=== PATIENT | female | born 1990 | race Caucasian/White ===

== ENCOUNTER 2016-06-15 16:09 | Inpatient (IN) | payer MEDICAID ==
[~2016-06-15] VITALS: Ht 160 cm; Wt 78.0 kg
[~2016-06-15 16:09] MED LIST: ACET500C5 PO
[2016-06-15] MEDS ORDERED: LACTATED RINGER'S 1,000 ML IV SCH (17:01)
[2016-06-15 17:08] VITALS: BMI 30.5
[2016-06-15] MEDS ORDERED: BETAMET NA PHOS/AC(6 MG/ML) 5ML INJ IM ONE (17:30)
[2016-06-15] MEDS ORDERED: AMPICILLIN 2 GM/NS (PMX) 100 ML IV ONE (17:30)
[2016-06-15] MEDS ORDERED: METHYLERGONOVINE 0.2 MG INJ IM PRN (17:30)
[2016-06-15] MEDS ORDERED: MAGNESIUM SULFATE 4 GM/100 ML 100 ML IVPB ONE (17:30)
[2016-06-15] MEDS ORDERED: OXYTOCIN 30 UNITS/LR 500 ML IV PRN (17:30)
[2016-06-15] MEDS ORDERED: CARBOPROST 250 MCG INJ IM PRN (17:30)
[2016-06-15] MEDS ORDERED: MISOPROSTOL 200 MCG TAB PR PRN (17:30)
[2016-06-15] MEDS: LACTATED RINGER'S 1,000 ML IV PRN (17:33)
[2016-06-15 17:58] LABS: BASOPHIL # 0.1 10^3/ul (0.0-0.1); BASOPHILS % 0.8 % (0.0-2.0); EOSINOPHILS % 0.3 % (0.0-7.0); HEMATOCRIT 36.6 % (37.0-47.0); HEMOGLOBIN 12.6 g/dl (12.0-16.0); LYMPHOCYTES % 18.7 % (15.0-51.0); MEAN CORPUSCULAR HEMOGLOBIN 34.5 pg (29.0-33.0); MEAN CORPUSCULAR HGB CONC 34.5 g/dl (32.0-37.0); MEAN CORPUSCULAR VOLUME 100.1 fl (82.0-101.0); MEAN PLATELET VOLUME 10.7 fl (7.4-10.4); MONOCYTE # 0.6 10^3/ul (0.3-0.9); MONOCYTES % 5.5 % (0.0-11.0); NEUTROPHIL # 8.1 10^3/ul (1.6-7.5); NEUTROPHILS % 74.7 % (39.0-77.0); PLATELET COUNT 177 10^3/UL (140-440); RED BLOOD COUNT 3.66 10^6/ul (4.20-5.40); RED CELL DISTRIBUTION WIDTH 11.7 % (11.5-14.5); UNCORRECTED WBC 10.9 10^3/ul (4.8-10.8); WHITE BLOOD COUNT 10.9 10^3/ul (4.8-10.8)
[2016-06-15 18:02] LABS: CONDITION 1
[2016-06-15 18:11] LABS: INR 0.92; PROTIME 12.4 Sec (12.2-14.2)
[2016-06-15 18:12] LABS: PARTIAL THROMBOPLASTIN TIME 25.6 Sec (25.0-35.0)
[2016-06-15] MEDS: MAGNESIUM SULFATE 20 GM/500 ML 500 ML IV SCH (18:37)
--- NOTE | 2016-06-15 18:45 | RADRPT ---
PROCEDURE: US OB CLINICAL INDICATION: 36 WEEKS IN ACTIVE LABOR TECHNIQUE: Multiple sonographic images of the pelvis were obtained. The images were reviewed on a PACS workstation. COMPARISON: Obstetrical ultrasound from the same date FINDINGS: The cervix is not well visualized. There is a single viable intrauterine gestation. Cardiac activity is present with 94 beats per minute. There is a vertex presentation. The placenta is fundal. There is no evidence for an abruption or placenta previa. There is a subjectively normal amount of amniotic fluid. Measurements were made in order to determine age. The results are as follows (cm): BPD =8.15 HC =28.60 AC =29.86 FL =6.00 Estimated gestational age by ultrasound of approximately 32 weeks, 2 days. The estimated date of delivery by ultrasound is 08/08/2016. Reported gestational age by LMP of approximately 33 weeks, 6 days. The reported date of delivery by LMP is 07/28/2016. EFW = 2040 grams (15th percentile by ultrasound) IMPRESSION: Single viable intrauterine gestation of approximately 32 weeks, 2 days . The estimated date of delivery is 08/08/2016 . Dating by ultrasound is within 11 days of dating by LMP. The cervix is not well visualized. Cephalic presentation. Estimated weight is in the 15th percentile. RPTAT: EE Physician Anitha Date Time Electronically viewed and signed by Physician Anitha on 06/15/2016 18:45 RA/
[2016-06-15] MEDS: AMPICILLIN 1 GM/NS (PMX) 50 ML IV SCH (20:53)
[2016-06-15] MEDS ORDERED: AMPICILLIN 1 GM/NS (PMX) 50 ML IVPB SCH (21:00)
[2016-06-15] MEDS ORDERED: AMPICILLIN 1 GM/NS (PMX) 50 ML IV SCH (21:30)
[2016-06-16] MEDS: AMPICILLIN 1 GM/NS (PMX) 50 ML IV SCH ×5 (00:49→16:55)
[2016-06-16] MEDS: LACTATED RINGER'S 1,000 ML IV PRN ×2 (03:53→18:38)
[2016-06-16] MEDS: MAGNESIUM SULFATE 20 GM/500 ML 500 ML IV SCH ×2 (04:31→14:38)
[2016-06-16] MEDS ORDERED: BETAMET NA PHOS/AC(6 MG/ML) 5ML INJ IM ONE (17:30)
[2016-06-16] MEDS ORDERED: AMPICILLIN 2 GM/NS (PMX) 100 ML IVPB SCH (17:30)
--- NOTE | 2016-06-16 17:41 | RADRPT ---
PROCEDURE: US biophysical profile. CLINICAL INDICATION: labor at 34 weeks. TECHNIQUE: Multiple sonographic images of the uterus were obtained. The images were revi ewed on a PACS workstation. COMPARISON: No prior studies are available for comparison. FINDINGS: There is a single live intrauterine gestation. heart rate is 137 beats per minute. The position is cephalic. The placenta is anterior grade II with no abruption or previa. The JANY is 14.8 cm. (Normal = 5-20 cm.) Breathing Movement: 2 Gross Body Movement: 2 Tone: 2 Qualitative Amniotic Fluid Volume: 2 TOTAL: 8 IMPRESSION: 1. The biophysical score is 8/8. RPTAT: QQ .Alin Rodriguez MD, MD Date Time Electronically viewed and signed by .Alin Rodriguez MD, on 06/16/2016 17:41 .R/
[2016-06-16] MEDS: AMPICILLIN 1 GM/NS (PMX) 50 ML IVPB SCH (21:16)
--- NOTE | 2016-06-16 21:57 | CONS ---
DATE OF ADMISSION: 06/15/2016 DATE OF CONSULTATION: 06/16/2016 REQUESTING PHYSICIAN: Bhaskar Jean MD REASON FOR CONSULTATION: labor with advancing dilatation. HISTORY OF PRESENT ILLNESS: Mrs. Bain is a 25-year-old, 1 admitted on 6 at 33-6/7 weeks' with labor. She has also chronic hypertension, does not appear to have p regnancy-induced hypertension. She is on magnesium and ampicillin for labor, received the f irst dose of betamethasone last night, and will have another dose probably around this time. There is no fever and no rupture of membranes. Group B strep is unknown. Blood type is A positive, RPR n egative, rubella immune, hepatitis B surface antigen negative. So, she is today 34 weeks. The estimated weight is 2040 g. I was asked to discuss the expect ed NICU problems with her. I spoke with the help of the automatic folder seamer computer. I explained issues of prematurity, possible risks related to prematurity such as long-term neurodevelopmental problems as well as the acute problems during her hospitalization such as respiratory, feeding, NEC, infection, and many other. The mother appears to understand the automatic folder seamer very well, and mother asked good questions, which we re all answered. Issues such as umbilical and central venous access were discussed, risk for intracranial bleeding, N EC, infection, apnea, hyperbilirubinemia, feeding difficulties touched. Thank you for allowing me to participate in the care of this family. Dictated By: VICENTE LOBATO MD AV/NTS Conf#: [id number] DID#: [id number] CC: BHASKAR JEAN MD;*EndCC*
[2016-06-17] MEDS: MAGNESIUM SULFATE 20 GM/500 ML 500 ML IV SCH (00:13)
[2016-06-17] MEDS: AMPICILLIN 1 GM/NS (PMX) 50 ML IVPB SCH ×6 (00:52→21:02)
[2016-06-17] MEDS: LACTATED RINGER'S 1,000 ML IV PRN ×2 (09:24→18:08)
--- NOTE | 2016-06-17 12:53 | PN ---
Date/Time of Note Date/Time of Note DATE: 06/17/16 TIME: 12:51 OB Subjective Subjective Subjective 34+wks GA with labor S/p Mg and steroids +fm No VB No CTXs No LOf --->BPP daily --->CBC --->continious monitoring and close Observation RENATO VARGAS M.D. Jun 17, 2016 12:53
--- NOTE | 2016-06-17 13:36 | RADRPT ---
PROCEDURE: US OB biophysical profile. CLINICAL INDICATION: evaluation TECHNIQUE: Multiple sonographic images of the pelvis were obtained. The images were reviewed on a PACS workstation. COMPARISON: Obstetrical ultrasound from 06/16/2016 FINDINGS: There is a single viable intrauterine gestation. Cardiac activity is present with 141 beats per min pavel. There is a vertex presentation. The placenta is anterior. There is no evidence of placental abruption. There is a normal amount of amniotic fluid with an JANY = 14.2 cm. Biophysical profile: movement 2/2 tone 2/2. breathing 2/2 JANY 2/2 Total 01/30 RPTAT: AA . IMPRESSION: Normal biophysical profile. Normal JANY. Physician Anitha Date Time Electronically viewed and signed by Physician Anitha on 06/17/2016 13:36 RA/
[2016-06-17 16:56] LABS: HEMATOCRIT 31.4 % (37.0-47.0); HEMOGLOBIN 10.8 g/dl (12.0-16.0); LYMPHOCYTES # 1.2 10^3/ul (0.8-2.9); MEAN CORPUSCULAR HEMOGLOBIN 34.6 pg (29.0-33.0); MEAN CORPUSCULAR HGB CONC 34.3 g/dl (32.0-37.0); MEAN CORPUSCULAR VOLUME 100.9 fl (82.0-101.0); MEAN PLATELET VOLUME 10.4 fl (7.4-10.4); MONOCYTE # 1.1 10^3/ul (0.3-0.9); MONOCYTES % 8.2 % (0.0-11.0); NEUTROPHIL # 10.7 10^3/ul (1.6-7.5); NEUTROPHILS % 82.8 % (39.0-77.0); PLATELET COUNT 174 10^3/UL (140-440); RED BLOOD COUNT 3.11 10^6/ul (4.20-5.40); RED CELL DISTRIBUTION WIDTH 12.1 % (11.5-14.5); UNCORRECTED WBC 12.9 10^3/ul (4.8-10.8); WHITE BLOOD COUNT 12.9 10^3/ul (4.8-10.8)
[2016-06-17 16:58] LABS: CONDITION 1
[2016-06-18] MEDS: AMPICILLIN 1 GM/NS (PMX) 50 ML IVPB SCH ×2 (01:08→05:05)
[2016-06-18] MEDS: LACTATED RINGER'S 1,000 ML IV PRN ×3 (01:17→19:52)
[2016-06-18 06:34] LABS: BASOPHILS % 0.4 % (0.0-2.0); EOSINOPHILS % 0.1 % (0.0-7.0); HEMATOCRIT 30.3 % (37.0-47.0); HEMOGLOBIN 10.4 g/dl (12.0-16.0); LYMPHOCYTES # 1.9 10^3/ul (0.8-2.9); LYMPHOCYTES % 16.7 % (15.0-51.0); MEAN CORPUSCULAR HEMOGLOBIN 34.7 pg (29.0-33.0); MEAN CORPUSCULAR HGB CONC 34.3 g/dl (32.0-37.0); MEAN CORPUSCULAR VOLUME 101.2 fl (82.0-101.0); MEAN PLATELET VOLUME 10.4 fl (7.4-10.4); MONOCYTE # 0.8 10^3/ul (0.3-0.9); MONOCYTES % 7.2 % (0.0-11.0); NEUTROPHIL # 8.6 10^3/ul (1.6-7.5); NEUTROPHILS % 75.6 % (39.0-77.0); PLATELET COUNT 152 10^3/UL (140-440); RED BLOOD COUNT 2.99 10^6/ul (4.20-5.40); RED CELL DISTRIBUTION WIDTH 12.2 % (11.5-14.5); UNCORRECTED WBC 11.4 10^3/ul (4.8-10.8); WHITE BLOOD COUNT 11.4 10^3/ul (4.8-10.8)
[2016-06-18 07:16] LABS: CONDITION 1; LH ANALYZER COMMENTS 1
[2016-06-18] MEDS: AMPICILLIN 2 GM/NS (PMX) 100 ML IVPB SCH ×2 (12:03→18:19)
[2016-06-19] MEDS: AMPICILLIN 2 GM/NS (PMX) 100 ML IVPB SCH ×4 (01:50→18:01)
[2016-06-19] MEDS ORDERED: FENTAnyl 50 MCG/ML VIAL ONE (02:08)
[2016-06-19] MEDS ORDERED: FENTAnyl 50 MCG/ML VIAL IV ONE (02:30)
[2016-06-19] MEDS: LACTATED RINGER'S 1,000 ML IV PRN (07:25)
[2016-06-19] MEDS ORDERED: IBUPROFEN 600 MG TAB PO PRN (11:00)
[2016-06-19] MEDS ORDERED: BUTORPHANOL 2 MG INJ IV PRN ×2 (11:00)
[2016-06-19] MEDS ORDERED: LIDOCAINE 1% (MPF) 30 ML INJ INJ PRN (11:00)
[2016-06-19] MEDS ORDERED: OXYTOCIN 30 UNITS/LR 500 ML IV SCH ×2 (11:00)
--- NOTE | 2016-06-19 12:22 | QN ---
Documentation Comment Late entry 06/18/16 34+wks GA with labor S/p Mg and steroids +fm No VB No CTXs No LOf --->BPP daily --->CBC --->continious monitoring and close Observation RENATO VARGAS M.D. Jun 19, 2016 12:22
[2016-06-19] MEDS: LACTATED RINGER'S 1,000 ML IV SCH (14:48)
[2016-06-19] MEDS: metroNIDAZOLE 500 MG TAB PO SCH (17:26)
--- NOTE | 2016-06-19 22:35 | NSTRPT ---
NST Information Datetime Report Generated by CPN: 06/19/2016 22:34 Datetime: 06/15/2016 14:05 NST Information EGA: 33.6 Test Number: 2 Time on Monitor: 06/15/2016 14:57 Time off Monitor: 06/15/2016 15:44 NST Duration (Min): 47 Reason for NST: Chronic Hypertension Test and Monitor Explained: Monitor Explained; Test Explained; Verbalized Understanding Pulse: 94 Resp: 18 SBP: 118 DBP: 65 Test Evaluation NST Interventions: PO Hydration Patient States Movement: Present Contraction Frequency: Q5-8min, denies FHR Baseline : 130 Variability: Moderate 6-25bpm Accelerations: 15X15 Decelerations: None FHR Category: Category I NST Results: Reactive Comments: PT TO U/S, JANY 15.1, cephalic. Report given to Dr. Jean covering for Dr. Curiel, who is out [facility]. New orders sent pt to OB-TRG for evaluation. Explain to pt ;plan of care. Pt states understanding. f/u appointment given. 1550-Pt to OB Triage Electronically Signed By E-Signature: with User ID: [id number] Datetime: 06/12/2016 14:19 NST Information EGA: 33.3 Datetime: 06/12/2016 14:10 NST Duration (Min): 36
[2016-06-20] MEDS: AMPICILLIN 2 GM/NS (PMX) 100 ML IVPB SCH ×4 (00:37→18:14)
--- NOTE | 2016-06-20 01:10 | PN ---
Date/Time of Note Date/Time of Note DATE: 06/19/16 OB Subjective Subjective Subjective No more C/O UC OB Objective Objective Objective VSS P/E : NL Cx: 4 cm OB Assessment/Plan Reason for admission: labor Other Assessment: 34 + weeks gestation Plan: Expectant Management LITZY STEIN MD Jun 20, 2016 01:10
[2016-06-20] MEDS: LACTATED RINGER'S 1,000 ML IV SCH ×7 (01:25→18:49)
[2016-06-20] MEDS: metroNIDAZOLE 500 MG TAB PO SCH ×4 (01:40→21:53)
[2016-06-20 06:21] LABS: BASOPHILS % 0.3 % (0.0-2.0); EOSINOPHILS # 0.1 10^3/ul (0.0-0.5); EOSINOPHILS % 0.7 % (0.0-7.0); HEMATOCRIT 33.8 % (37.0-47.0); HEMOGLOBIN 11.9 g/dl (12.0-16.0); LYMPHOCYTES # 1.6 10^3/ul (0.8-2.9); LYMPHOCYTES % 20.3 % (15.0-51.0); MEAN CORPUSCULAR HEMOGLOBIN 35.8 pg (29.0-33.0); MEAN CORPUSCULAR HGB CONC 35.3 g/dl (32.0-37.0); MEAN CORPUSCULAR VOLUME 101.4 fl (82.0-101.0); MEAN PLATELET VOLUME 10.2 fl (7.4-10.4); MONOCYTE # 0.5 10^3/ul (0.3-0.9); MONOCYTES % 6.1 % (0.0-11.0); NEUTROPHIL # 5.9 10^3/ul (1.6-7.5); NEUTROPHILS % 72.6 % (39.0-77.0); PLATELET COUNT 156 10^3/UL (140-440); RED BLOOD COUNT 3.33 10^6/ul (4.20-5.40); RED CELL DISTRIBUTION WIDTH 11.7 % (11.5-14.5); UNCORRECTED WBC 8.1 10^3/ul (4.8-10.8); WHITE BLOOD COUNT 8.1 10^3/ul (4.8-10.8)
[2016-06-20 07:17] LABS: CONDITION 1; LH ANALYZER COMMENTS 1
--- NOTE | 2016-06-20 19:01 | PN ---
Date/Time of Note Date/Time of Note DATE: 06/20/16 TIME: 19:00 OB Subjective Subjective Subjective No C/O U/C OB Objective Objective Objective vss P/E : NL on EFM no U/C seen OB Assessment/Plan Reason for admission: labor Other Assessment: 27-28 weeks gestation Other plan: conyinue to observe until 32 weeks LITZY STEIN MD Jun 20, 2016 19:01
--- NOTE | 2016-06-20 19:04 | PN ---
Date/Time of Note Date/Time of Note DATE: 06/20/16 TIME: 19:03 OB Subjective Subjective Subjective No major complaints OB Objective Objective Objective VSS P/E : unchanged OB Assessment/Plan Reason for admission: labor Other Assessment: 34 weeks gestation Other plan: continue to observe expectantly LITZY STEIN MD Jun 20, 2016 19:04
[2016-06-21] MEDS: AMPICILLIN 2 GM/NS (PMX) 100 ML IVPB SCH ×4 (00:09→17:37)
[2016-06-21] MEDS: LACTATED RINGER'S 1,000 ML IV SCH ×7 (00:13→20:00)
[2016-06-21] MEDS: metroNIDAZOLE 500 MG TAB PO SCH ×2 (06:00→14:25)
[2016-06-21 06:39] LABS: BASOPHILS % 0.6 % (0.0-2.0); EOSINOPHILS # 0.1 10^3/ul (0.0-0.5); EOSINOPHILS % 0.9 % (0.0-7.0); HEMATOCRIT 33.8 % (37.0-47.0); HEMOGLOBIN 11.9 g/dl (12.0-16.0); LYMPHOCYTES # 1.8 10^3/ul (0.8-2.9); LYMPHOCYTES % 22.3 % (15.0-51.0); MEAN CORPUSCULAR HEMOGLOBIN 35.5 pg (29.0-33.0); MEAN CORPUSCULAR HGB CONC 35.1 g/dl (32.0-37.0); MEAN CORPUSCULAR VOLUME 101.2 fl (82.0-101.0); MEAN PLATELET VOLUME 10.5 fl (7.4-10.4); MONOCYTE # 0.6 10^3/ul (0.3-0.9); NEUTROPHIL # 5.5 10^3/ul (1.6-7.5); NEUTROPHILS % 68.2 % (39.0-77.0); PLATELET COUNT 155 10^3/UL (140-440); RED BLOOD COUNT 3.34 10^6/ul (4.20-5.40); RED CELL DISTRIBUTION WIDTH 12.1 % (11.5-14.5); UNCORRECTED WBC 8.1 10^3/ul (4.8-10.8); WHITE BLOOD COUNT 8.1 10^3/ul (4.8-10.8)
[2016-06-21 06:41] LABS: CONDITION 1; LH ANALYZER COMMENTS 1
--- NOTE | 2016-06-21 18:59 | PN ---
Date/Time of Note Date/Time of Note DATE: 06/21/16 TIME: 18:57 OB Subjective Subjective Subjective No more C/O UCs OB Objective Objective Objective VSS general P/E is unchanged cervix not examined because of possible stimulation OB Assessment/Plan Reason for admission: active labor Other plan: start on PO Nifedipine LITZY STEIN MD Jun 21, 2016 18:59
[2016-06-21] MEDS: NIFEdipine 10 MG CAP PO SCH (21:03)
--- NOTE | 2016-06-21 21:06 | RADRPT ---
PROCEDURE: US evaluation of amniotic fluid volume. CLINICAL INDICATION: Leaking amniotic fluid. TECHNIQUE: Multiple sonographic images of the gravid uterus were obtained utilizing yang-scale sophie ging. Sagittal and transverse images were obtained. The images were reviewed on a PACS workstation . JANY was measured. COMPARISON: 06/17/2016. FINDINGS: There is a single live intrauterine . heart rate is 143 beats per minute. Position is cephalic. Placenta is anterior grade II with no abruption or previa. JANY is 19.6 cm. (Normal = 5-20 cm.) IMPRESSION: 1. JANY is 19.6 cm. RPTAT: QQ .Alin Rodriguez MD, Date Time Electronically viewed and signed by .Alin Rodriguez MD, on 06/21/2016 21:06 .R/
[2016-06-22] MEDS: LACTATED RINGER'S 1,000 ML IV SCH ×4 (01:41→17:53)
[2016-06-22] MEDS: NIFEdipine 10 MG CAP PO SCH ×5 (01:42→23:59)
[2016-06-22 06:48] LABS: BASOPHILS % 0.5 % (0.0-2.0); EOSINOPHILS # 0.1 10^3/ul (0.0-0.5); EOSINOPHILS % 0.9 % (0.0-7.0); HEMATOCRIT 33.7 % (37.0-47.0); HEMOGLOBIN 11.8 g/dl (12.0-16.0); LYMPHOCYTES # 1.9 10^3/ul (0.8-2.9); LYMPHOCYTES % 23.3 % (15.0-51.0); MEAN CORPUSCULAR HEMOGLOBIN 35.4 pg (29.0-33.0); MEAN CORPUSCULAR HGB CONC 35.1 g/dl (32.0-37.0); MEAN PLATELET VOLUME 10.7 fl (7.4-10.4); MONOCYTE # 0.5 10^3/ul (0.3-0.9); MONOCYTES % 6.1 % (0.0-11.0); NEUTROPHIL # 5.8 10^3/ul (1.6-7.5); NEUTROPHILS % 69.2 % (39.0-77.0); PLATELET COUNT 163 10^3/UL (140-440); RED BLOOD COUNT 3.34 10^6/ul (4.20-5.40); RED CELL DISTRIBUTION WIDTH 11.9 % (11.5-14.5); UNCORRECTED WBC 8.3 10^3/ul (4.8-10.8); WHITE BLOOD COUNT 8.3 10^3/ul (4.8-10.8)
[2016-06-22 07:02] LABS: CONDITION 1
[2016-06-23] MEDS: LACTATED RINGER'S 1,000 ML IV SCH ×3 (01:44→17:45)
[2016-06-23] MEDS: NIFEdipine 10 MG CAP PO SCH ×4 (06:01→23:57)
[2016-06-23 06:35] LABS: BASOPHILS % 0.5 % (0.0-2.0); EOSINOPHILS # 0.1 10^3/ul (0.0-0.5); EOSINOPHILS % 0.9 % (0.0-7.0); HEMATOCRIT 32.9 % (37.0-47.0); HEMOGLOBIN 11.4 g/dl (12.0-16.0); LYMPHOCYTES # 2.1 10^3/ul (0.8-2.9); LYMPHOCYTES % 27.6 % (15.0-51.0); MEAN CORPUSCULAR HEMOGLOBIN 35.1 pg (29.0-33.0); MEAN CORPUSCULAR HGB CONC 34.7 g/dl (32.0-37.0); MEAN CORPUSCULAR VOLUME 101.1 fl (82.0-101.0); MEAN PLATELET VOLUME 10.5 fl (7.4-10.4); MONOCYTE # 0.5 10^3/ul (0.3-0.9); MONOCYTES % 6.9 % (0.0-11.0); NEUTROPHIL # 4.8 10^3/ul (1.6-7.5); NEUTROPHILS % 64.1 % (39.0-77.0); PLATELET COUNT 175 10^3/UL (140-440); RED BLOOD COUNT 3.26 10^6/ul (4.20-5.40); RED CELL DISTRIBUTION WIDTH 11.9 % (11.5-14.5); UNCORRECTED WBC 7.5 10^3/ul (4.8-10.8); WHITE BLOOD COUNT 7.5 10^3/ul (4.8-10.8)
[2016-06-23 06:44] LABS: CONDITION 1; LH ANALYZER COMMENTS 1
--- NOTE | 2016-06-23 17:04 | PN ---
Date/Time of Note Date/Time of Note late entry DATE: 06/22+/16 TIME: 19:10 OB Subjective Subjective Subjective No C/O UCs OB Objective Objective Objective VSS P/E: NL OB Assessment/Plan Reason for admission: labor Other Assessment: 354.6 weeks gestation Other plan: will continue to observe until 37 weeks LITZY STEIN MD Jun 23, 2016 17:04
--- NOTE | 2016-06-23 17:07 | PN ---
Date/Time of Note Date/Time of Note DATE: 06/23/16 TIME: 17:04 OB Subjective Subjective Subjective had bleeding last PM OB Objective Objective Objective vss P/E: normal Cs: 100% 4-5 cm OB Assessment/Plan Reason for admission: labor Other Assessment: 35 weeks gestation Other plan: continue to observe LITZY STEIN MD Jun 23, 2016 17:07
[2016-06-24] MEDS: LACTATED RINGER'S 1,000 ML IV SCH ×3 (01:31→17:00)
[2016-06-24] MEDS: NIFEdipine 10 MG CAP PO SCH ×3 (06:09→17:47)
[2016-06-24 07:35] LABS: BASOPHILS % 0.4 % (0.0-2.0); EOSINOPHILS # 0.1 10^3/ul (0.0-0.5); EOSINOPHILS % 0.8 % (0.0-7.0); HEMATOCRIT 33.1 % (37.0-47.0); HEMOGLOBIN 11.4 g/dl (12.0-16.0); LYMPHOCYTES % 23.9 % (15.0-51.0); MEAN CORPUSCULAR HEMOGLOBIN 34.8 pg (29.0-33.0); MEAN CORPUSCULAR HGB CONC 34.4 g/dl (32.0-37.0); MEAN CORPUSCULAR VOLUME 101.1 fl (82.0-101.0); MEAN PLATELET VOLUME 10.8 fl (7.4-10.4); MONOCYTE # 0.6 10^3/ul (0.3-0.9); MONOCYTES % 7.6 % (0.0-11.0); NEUTROPHIL # 5.6 10^3/ul (1.6-7.5); NEUTROPHILS % 67.3 % (39.0-77.0); PLATELET COUNT 173 10^3/UL (140-440); RED BLOOD COUNT 3.28 10^6/ul (4.20-5.40); RED CELL DISTRIBUTION WIDTH 11.8 % (11.5-14.5); UNCORRECTED WBC 8.3 10^3/ul (4.8-10.8); WHITE BLOOD COUNT 8.3 10^3/ul (4.8-10.8)
[2016-06-24 07:41] LABS: CONDITION 1; LH ANALYZER COMMENTS 1
--- NOTE | 2016-06-24 13:40 | PN ---
Date/Time of Note Date/Time of Note DATE: 06/24/16 TIME: 13:39 OB Subjective Subjective Subjective No major complaints OB Objective Objective Objective currently stable FHTs R OB Assessment/Plan Reason for admission: labor Other Assessment: 35 weeks gestation Other plan: will continue to observe until 37 weeks LITZY STEIN MD Jun 24, 2016 13:40
[2016-06-25] MEDS: LACTATED RINGER'S 1,000 ML IV SCH ×4 (00:13→16:30)
[2016-06-25] MEDS: NIFEdipine 10 MG CAP PO SCH ×4 (00:26→17:53)
--- NOTE | 2016-06-25 11:23 | PN ---
Date/Time of Note Date/Time of Note DATE: 06/25/16 TIME: 11:21 OB Subjective Subjective Subjective NO major complaints OB Objective Objective Objective cervical dilatation remains too advanced to D/C patient home general P/E in unchanged OB Assessment/Plan Reason for admission: labor Other Assessment: 35 + weeks gestation Other plan: will continue to observe until 37 weeks LITZY STEIN MD Jun 25, 2016 11:23
[2016-06-26] MEDS: NIFEdipine 10 MG CAP PO SCH ×3 (00:11→12:00)
[2016-06-26] MEDS: LACTATED RINGER'S 1,000 ML IV SCH ×2 (00:32→10:03)
[2016-06-26] MEDS ORDERED: AMPICILLIN 2 GM/NS (PMX) 100 ML IV ONE (03:30)
[2016-06-26 04:27] VITALS: BP 125/79; PULSE 77; RESP 14
[2016-06-26 04:47] VITALS: Ht 160 cm; Wt 78.0 kg
[2016-06-26] MEDS: AMPICILLIN 1 GM/NS (PMX) 50 ML IV SCH ×2 (07:46→11:17)
[2016-06-26] MEDS ORDERED: MINERAL OIL LIGHT 10 ML VIAL TOP PRN (09:30)
[2016-06-26] MEDS: LIDOCAINE 1% (MPF) 30 ML INJ INJ PRN ×2 (13:15→14:05)
--- NOTE | 2016-06-26 14:34 | LDN ---
Date/Time of Note Date/Time of Note DATE: 06/26/16 TIME: 14:31 Delivery Summary of a viable infant over intact perineum Placenta Delivered: Spontaneously, Intact & Complete Meconium: none Perineum intact?: No Perineal laceration: 2 Perineal laceration repair: 2nd degree perineal laceration was repaired in layers with 2 0 chromic Anesthesia type: Local Estimated blood loss: 300 Sponge & Needle done & correct: Yes All needle counts correct: Yes Any foreign bodies felt in the: No Problems: Delivery Information Sex Sex: male Apgars 1 Minute: 9 5 Minute: 9 Suctioning Nose & mouth suctioned at dorina: Yes Delee suction performed: No Umbilical Cord Umbilical cord with: 3 Vessels Cord presentations: no nuchal cord Cord Blood was obtained: Yes Mother & Baby Disposition Disposition Mom & Baby to Maternity; Good: Yes (mother and baby were recovered in good condition ) Mom transferred to: Other (maternnity ) Baby to NICU: No LITZY STEIN MD Jun 26, 2016 14:34
--- NOTE | 2016-06-26 15:18 | OPRPT ---
Intraop Record Datetime Report Generated by CPN: 06/26/2016 15:18 Datetime: 06/26/2016 04:15 Drug Allergies/Reactions: No Known Allergy (06/26/2016) Datetime: 05/30/2016 10:06 Drug Allergies/Reactions: No Known Allergy (12/01/2015)
--- NOTE | 2016-06-26 15:18 | DELSUM ---
Delivery Summary A-C Datetime Report Generated by CPN: 06/26/2016 15:18 DELIVERY PERSONNEL Car Parker: Kamla Carlson MATERNAL INFORMATION Delivery Anesthesia: Local Medications in Delivery: OXYTOCIN 30 UNITS Estimated Blood Loss (ml): 250 Placenta Cultured: No Maternal Complications: None; Other RN Comments: chronic hypertension before , PTL, betamethasone given 06/17/16 LABOR SUMMARY EDC: 07/28/2016 00:00 No. Babies in Womb: 1 Attempted: No Labor Anesthesia: None LABOR INFORMATION Reason for Induction: Not Applicable Onset of Labor: 06/26/2016 01:20 Complete Dilatation: 06/26/2016 12:50 Oxytocin: N/A Group B Beta Strep: Not Done Antibiotics # of Doses: 2 Antibiotics Time of Last Dose: 1118 (Annotations: Data stored by N on behalf of user) Steroids Given: Full Course Reason Steroids Not Administered: Not Applicable Other Reason Not Administered: 06/17/16 full course of beta given MEMBRANES Membranes Rupture Method: Spontaneous Membranes Rupture Method: Spontaneous Rupture of Membranes: 06/26/2016 01:20 Rupture of Membranes: 06/26/2016 01:20 Length of Rupture (hr): 11.85 Length of Rupture (hr): 11.85 Amniotic Fluid Color: Clear Amniotic Fluid Color: Clear Amniotic Fluid Amount: Moderate Amniotic Fluid Amount: Small Amniotic Fluid Odor: Normal Amniotic Fluid Odor: Normal STAGES OF LABOR Stage 1 hr: 11 Stage 1 min: 30 Stage 2 hr: 0 Stage 2 min: 21 Stage 3 hr: 0 Stage 3 min: 22 Total Time in Labor hr: 12 Total Time in Labor min: 13 VAGINAL DELIVERY Episiotomy: None Laceration Extension: Second Degree Laceration Type: Perineal Laceration Repair: Yes Initial Vag Sponge Count: 20 Final Vag Sponge Count: 20 Initial Vag Sharps Count: 2 Final Vag Sharps Count: 2 Sponge Count Correct: Yes; Vaginal Sweep Performed Sharps Count Correct: Yes BABY A INFORMATION Delivery Date/Time: 06/26/2016 13:11 Method of Delivery: Vaginal Born in Route : No : N/A Forceps: N/A Vacuum Extraction: N/A Shoulder Dystocia : N/A SHOULDER DYSTOCIA BABY A Infant Delivery Date/Time: 06/26/2016 13:11 PRESENTATION/POSITION BABY A Presentation: Cephalic Cephalic Presentation: Vertex Breech Presentation: N/A PLACENTA INFORMATION BABY A Placenta Delivery Time : 06/26/2016 13:33 Placenta Method of Delivery: Spontaneous Placenta Status: Delivered SCORES BABY A Heart Rate 1 min: >100 bpm Resp Effort 1 min: Good Cry Reflex Irritability 1 min: Cough/Sneeze/Pulls Away Muscle Tone 1 min: Active Motion Color 1 min: Body [place], Extremit Blue Resuscitation Effort 1 min: Tactile Stimulation SCORE 1 MIN: 9 Heart Rate 5 min: >100 bpm Resp Effort 5 min: Good Cry Reflex Irritability 5 min: Cough/Sneeze/Pulls Away Muscle Tone 5 min: Active Motion Color 5 min: Body [place], Extremit Blue Resuscitation Effort 5 min: N/A SCORE 5 MIN: 9 INFORMATION BABY A Gestational Age at Delivery: 35.3 Gestational Status: Late - 34- 36.6 Weeks Outcome : Liveborn Infant Condition : Stable Sex: Male IDENTIFICATION/MEDS BABY A ID Band Number: [id number] ID Band Location: Right Leg; Left Arm Sensor Number: [id number] Sensor Location : Cord Clamp Vitamin K Given : Not Given Erythromycin Given: Not Given WEIGHT/LENGTH BABY A Infant Birthweight (gm): 2500 Infant Weight (lb): 5 Infant Weight (oz): 8 Infant Length (in): 18.50 Length (cm): 46.99 CORD INFORMATION BABY A No. Cord Vessels: 3 Nuchal Cord : Around Neck x1, Loose Cord Blood Taken: Yes Suction: Mouth; Nose ASSESSMENT BABY A Infant Complications: None Physical Findings at Delivery: Within Normal Limits Infant Respirations: Appears Normal Conche Loader And Unloader/ALS Called : No Infant Care By: Shilpa rn;Darnell presiding steward Transferred To: Remains with Mother
[2016-06-26] MEDS ORDERED: CARBOPROST 250 MCG INJ IM PRN (15:30)
[2016-06-26] MEDS ORDERED: METHYLERGONOVINE 0.2 MG INJ IM PRN (15:30)
[2016-06-26] MEDS ORDERED: OXYTOCIN 30 UNITS/LR 500 ML IV PRN (15:30)
[2016-06-26] MEDS ORDERED: ACETAMINOPHEN/CODEINE #3 TAB PO PRN ×2 (15:30)
[2016-06-26] MEDS ORDERED: MISOPROSTOL 200 MCG TAB PR PRN (15:30)
[2016-06-26] MEDS ORDERED: DIBUCAINE 1% 30 GM OINT PR PRN (15:30)
[2016-06-26] MEDS ORDERED: LANOLIN 7 GM TUBE TOP PRN (15:30)
[2016-06-26] MEDS ORDERED: ZOLPIDEM 5 MG TAB PO PRN (15:30)
[2016-06-26 15:53] VITALS: BP 141/90; PULSE 79; RESP 18
[2016-06-26] MEDS: LACTATED RINGER'S 1,000 ML IV* SCH ×2 (15:56→16:25)
[2016-06-26] MEDS: IBUPROFEN 600 MG TAB PO SCH ×2 (15:57→23:38)
[2016-06-26] MEDS: WITCH HAZEL/GLYCERIN PAD PR PRN (16:24)
[2016-06-26] MEDS: BENZOCAINE 20% 56 ML SPRAY TOP PRN (16:24)
[2016-06-26 20:30] VITALS: BP 129/89; PULSE 71; RESP 17
[2016-06-26] MEDS: SENNA/DOCUSATE NA (8.6MG/50MG) TAB PO SCH (21:05)
[2016-06-26] MEDS: MAGNESIUM HYDROXIDE 30ML CUP PO SCH (21:06)
[2016-06-26 23:40] VITALS: BP 119/77; PULSE 76; RESP 16
[2016-06-27 04:00] VITALS: BP 123/81; PULSE 66; RESP 17
[2016-06-27] MEDS: IBUPROFEN 600 MG TAB PO SCH ×4 (06:15→23:45)
[2016-06-27 06:38] LABS: BASOPHIL # 0.1 10^3/ul (0.0-0.1); BASOPHILS % 0.5 % (0.0-2.0); EOSINOPHILS % 0.4 % (0.0-7.0); HEMATOCRIT 34.9 % (37.0-47.0); HEMOGLOBIN 11.9 g/dl (12.0-16.0); LYMPHOCYTES % 16.5 % (15.0-51.0); MEAN CORPUSCULAR HEMOGLOBIN 34.4 pg (29.0-33.0); MEAN CORPUSCULAR HGB CONC 34.2 g/dl (32.0-37.0); MEAN CORPUSCULAR VOLUME 100.6 fl (82.0-101.0); MEAN PLATELET VOLUME 11.1 fl (7.4-10.4); MONOCYTE # 0.7 10^3/ul (0.3-0.9); MONOCYTES % 5.7 % (0.0-11.0); NEUTROPHIL # 9.2 10^3/ul (1.6-7.5); NEUTROPHILS % 76.9 % (39.0-77.0); PLATELET COUNT 195 10^3/UL (140-440); RED BLOOD COUNT 3.47 10^6/ul (4.20-5.40)
[2016-06-27 06:54] LABS: CONDITION 1
[2016-06-27 08:00] VITALS: BP 118/71; PULSE 68; RESP 17
[2016-06-27] MEDS: MAGNESIUM HYDROXIDE 30ML CUP PO SCH ×2 (08:50→20:40)
[2016-06-27] MEDS: SENNA/DOCUSATE NA (8.6MG/50MG) TAB PO SCH ×2 (08:50→20:40)
[2016-06-27 12:00] VITALS: BP 119/62; PULSE 83; RESP 16
[2016-06-27] MEDS: BENZOCAINE 20% 56 ML SPRAY TOP PRN (15:08)
[2016-06-27 16:00] VITALS: BP 114/72; PULSE 81; RESP 17
--- NOTE | 2016-06-27 18:38 | DS ---
Date/Time of Note Date/Time of Note home next day DATE: 06/27/16 TIME: 18:33 Obstetrical Discharge Record Final Diagnosis Final Diagnosis: delivered Other Final Diagnosis S/P vaginal delivery Vaginal Delivery Obstetrical Delivery: Spontaneous, Laceration, Repaired Complications Tocolytics: Magnesium Sulfate, Other (Nifedipine) Condition on Discharge Physical Assessment Last Vitals: see nurses notes Voiding: Yes Bowel Movement: Yes Breast: Soft, non-tender, Filling Fundus: Firm Abdomen and Incision: soft BS + Episiotomy: perineum: healing Calf Tenderness: No Patient Condition: Good LITZY STEIN MD Jun 27, 2016 18:38
--- NOTE | 2016-06-27 18:40 | DS ---
Date/Time of Note Date/Time of Note DATE: 06/27/16 TIME: 18:38 Discharge Summary Admission/Discharge Info Admit Date/Time Jun 15, 2016 at 16:40 Discharge Date/Time 06/28/2015 Final Diagnosis S/P vaginal delivery Patient Condition: Good Procedures vaginal delivery Hx of Present Illness 25 y/o female had vaginal delivery Hospital Course uncomplicated Home Meds Active Scripts Acetaminophen* (Tylophen*) 500 Mg Capsule, 1 CAP PO Q6H Y for PAIN AND OR ELEVATED TEMP, #20 CAP Prov:AKUA RODRIGUEZ MACHINE CERAMIC COATER 12/02/15 Reported Medications [none] Unknown Strength No Conflict Check 12/01/15 Follow-up Plan 4 weeks in clinic Pending Labs Laboratory Tests Test 06/27/16 05:50 Basophils # 0.110^3/ul (0.0-0.1) Basophils % 0.5% (0.0-2.0) Blood Morphology Comment Eosinophils # 0.010^3/ul (0.0-0.5) Eosinophils % 0.4% (0.0-7.0) Hematocrit 34.9% (37.0-47.0) Hemoglobin 11.9g/dl (12.0-16.0) Lymphocytes # 2.010^3/ul (0.8-2.9) Lymphocytes % 16.5% (15.0-51.0) Mean Corpuscular Hemoglobin 34.4pg (29.0-33.0) Mean Corpuscular Hemoglobin Concent 34.2g/dl (32.0-37.0) Mean Corpuscular Volume 100.6fl (82.0-101.0) Mean Platelet Volume 11.1fl (7.4-10.4) Monocytes # 0.710^3/ul (0.3-0.9) Monocytes % 5.7% (0.0-11.0) Neutrophils # 9.210^3/ul (1.6-7.5) Neutrophils % 76.9% (39.0-77.0) Nucleated Red Blood Cells # 0.010^3/ul (0.0-0.0) Nucleated Red Blood Cells % 0.0/100WBC (0.0-0.0) Platelet Count 57856^3/UL (140-440) Red Blood Count 3.4710^6/ul (4.20-5.40) Red Cell Distribution Width 12.0% (11.5-14.5) White Blood Count 12.010^3/ul (4.8-10.8) LITZY STEIN MD Jun 27, 2016 18:40
[2016-06-27 19:45] VITALS: BP 135/89; PULSE 76; RESP 18
[2016-06-28 04:00] VITALS: BP 134/84; PULSE 75; RESP 18
[2016-06-28] MEDS: WITCH HAZEL/GLYCERIN PAD PR PRN (04:20)
[2016-06-28] MEDS: IBUPROFEN 600 MG TAB PO SCH ×2 (05:47→12:01)
[2016-06-28 07:20] VITALS: BP 115/65; PULSE 101; RESP 18
[2016-06-28] MEDS: MAGNESIUM HYDROXIDE 30ML CUP PO SCH (08:32)
[2016-06-28] MEDS: SENNA/DOCUSATE NA (8.6MG/50MG) TAB PO SCH (08:32)
[2016-06-28] MEDS ORDERED: MEASLES,MUMPS,RUBELLA VACCINE INJ SC* ONE (09:00)
[2016-06-28] MEDS ORDERED: DIPHTH/TET/ACEL PERTUSS (ADULT) 0.5 ML VIAL IM* ONE (09:00)
[2016-06-28] MEDS ORDERED: VARICELLA VACCINE LIVE/PF 1,350 UNIT/0.5 ML ML SC* ONE (09:00)
--- NOTE | 2016-06-28 13:31 | PD.PPDC ---
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
[2016-06-28] MEDS ORDERED: IBUP-1542 PO (13:32)
== END 2016-06-28 14:10 | disposition home or self-care (01) | DRG 774 ==
LOC: OBT 16:09 → L-D 16:09 → OBT 16:40 → L-D 17:33 → OBG 06-20 17:47 → L-D 06-26 03:30 → PP1 06-26 15:31
PROVIDERS: ADMIT Obstetrics & Gynecology; ATTEND Obstetrics & Gynecology
PROC: 10D07Z8 Extraction of Products of Conception, Other, Via Natural or Artificial Opening (ICD-10-PCS; principal; 2016-06-26)
PROC: 0KQM0ZZ Repair Perineum Muscle, Open Approach (ICD-10-PCS; 2016-06-26)
DX: O60.14X0 Preterm labor third trimester with preterm delivery third trimester, not applicable or unspecified (principal); O10.913 Unspecified pre-existing hypertension complicating pregnancy, third trimester; O70.1 Second degree perineal laceration during delivery; Z3A.35 35 weeks gestation of pregnancy; Z37.0 Single live birth
CPT/HCPCS: 76815; 76818; 83735; 84112; 85025; 85610; 85730; 86592; 86900; 86901; 87340; 90715; 90716; 99464; G0463; J0290; J0702; J2590; J3010; J3475; J7120